=== PATIENT | male | born 1960 | race Caucasian/White ===

== ENCOUNTER 2018-04-07 00:36 | Day surgery (SDC) | payer OTHER ==
[~2018-04-07] VITALS: Ht 195.6 cm; Wt 112.5 kg
[~2018-04-07 00:36] MED LIST: AMLO-96 PO; ASPI-1471 PO; ATR80PT PO; AUG500 PO; CAR6.25 PO; LAN15 PO; LIS5 PO; PANT40TA65 PO; RABE20TA33 PO; TRIA1CAP85 PO
[2018-04-07] MEDS ORDERED: KETAMINE HCL 200 MG/20 ML MDV ONE (07:24)
[2018-04-07 08:28] VITALS: BP 148/91
[2018-04-07] MEDS ORDERED: NORMOSOL R SOLN(*) 1000 ML BAG 1,000 ML IV PRN (08:40)
[2018-04-07] MEDS ORDERED: LIDOCAINE/SOD BICARB 8.4% SYR ID ONE (08:40)
[2018-04-07 10:31] VITALS: BP 98/65
[2018-04-07 10:52] VITALS: BP 109/72
[2018-04-07 11:17] VITALS: BP 105/76
[2018-04-07 11:18] VITALS: BP 97/69
--- NOTE | 2018-04-07 11:18 | Short(Outpt) Discharge Summary ---
Discharge Summary Reason for Hosp/Final Diag: (1) Dysphagia Status: Chronic Hospital Course & Plan: EGD with dilation completed without problems. (2) Family history of colon cancer in mother Hospital Course & Plan: Colonoscopy completed without problems. Departure Discharge to: Home, Self Care Discharge Instructions Home Meds Reported Medications Atorvastatin (LIPITOR) 80 Mg Tab, 1 TAB PO QDAY, TAB 03/15/18 Pantoprazole Sodium (PANTOPRAZOLE SODIUM) 40 Mg Tablet.dr, 1 TAB PO QDAY, TAB.SR 03/15/18 Carvedilol (CARVEDILOL) 6.25 Mg Tab, 0.5 TAB PO BID, TAB 03/15/18 Amlodipine Besylate (AMLODIPINE BESYLATE) 5 Mg Tablet, 1 TAB PO QDAY, TAB 03/15/18 Triamterene/Hydrochlorothiazid (TRIAMTERENE-HCTZ 37.5-25 MG CP) 1 Each Capsule, 1 CAP PO QODAY, CAPSULE 03/15/18 Aspirin (ASPIR 81) 81 Mg Tablet.dr, 1 TAB PO QDAY, TAB 03/15/18 Diet: Regular Activity: As Tolerated Special Instructions: Your upper endoscopy and colonoscopy were completed without any problems and your prep was excellent (Good Job!!). I dilated your esophagus and I recommend that you continue taking the pantoprazole. Your colonoscopy was normal but because of your family history, and in accordance with national colon cancer screening guidelines, I recommend that your next colonoscopy be in 5 years. Problem Qualifiers (1) Dysphagia: Dysphagia type: esophageal phase Qualified Codes: R13.10 - Dysphagia, unspecified LORNA GHOTRA MD Apr 07, 2018 11:18
[2018-04-07] MEDS ORDERED: PROPOFOL EMUL(*) 10MG/ML 20 ML 20 ML ONE ×2 (12:08→12:11)
[2018-04-07] MEDS ORDERED: LIDOCAINE MPF 1% 5 ML VIAL ONE ×2 (12:08→12:11)
== END 2018-04-07 11:33 | disposition home or self-care (01) ==
LOC: OR 00:36
PROVIDERS: ATTEND Surgery
DX: Z12.11 Encounter for screening for malignant neoplasm of colon (principal); Z80.0 Family history of malignant neoplasm of digestive organs
CPT/HCPCS: 00812; 43248; 45378; J2001; J2704; J3490; C1769